=== PATIENT | male | born 1955 | race Caucasian/White ===

== ENCOUNTER → 2025-08-28 | Day surgery (SDC) | payer MEDICARE ==
[2025-08-23 12:34] LABS: BASOPHILS % 0.2 % (0.0-1.0); EOSINOPHILS % 0.3 % (0.0-6.0); LYMPHOCYTES % 24.3 % (18.0-39.1); MONOCYTES % 7.1 % (4.4-11.3); NEUTROPHILS % 67.7 % (38.7-80.0); RED CELL DISTRIBUTION WIDTH 13.8 % (11.7-14.4)
[~2025-08-28] MED LIST: ASPIRIN81 MG PO; BENICAR20 MG PO; CYCLOBENZAPRINE10 MG PO; FLUVASTATIN ER80 MG PO; GLIPIZIDE5 MG PO; HYDROCHLOROTHIA25 MG PO; LACTATED RINGER'S 1,000 ML ONE; LASIX20 MG PO; LIDOCAINE HCL 2% LOCAL INJ 5 ML SDV VIAL INJ ONE; MULTIVITAMIN1 EACH PO; NABUMETONE500 MG PO; OMEGA-31000 MG PO; POTASSIUM CHLO10 ME1 PO; PROPOFOL IV EMULSION 50 ML IV ONE; TRICOR145 MG PO; ULTRAM 50MG50 MG PO; VITAMIN B121000 MCG PO; ZOVIRAX200 MG/5 M PO
[2025-08-28 09:47] VITALS: TEMP 98.5
[2025-08-28 10:20] VITALS: BP 121/72; PULSE 66; RESP 16; O2SAT 98
== END | disposition home or self-care (01) ==
LOC: OR 06:54
PROVIDERS: ATTEND Internal Medicine Gastroenterology
DX: Z12.11 Encounter for screening for malignant neoplasm of colon (principal); K64.1 Second degree hemorrhoids; K57.90 Diverticulosis of intestine, part unspecified, without perforation or abscess without bleeding; K85.90 Acute pancreatitis without necrosis or infection, unspecified; G47.33 Obstructive sleep apnea (adult) (pediatric); I10 Essential (primary) hypertension; E66.01 Morbid (severe) obesity due to excess calories; E11.9 Type 2 diabetes mellitus without complications; I25.10 Atherosclerotic heart disease of native coronary artery without angina pectoris; E78.5 Hyperlipidemia, unspecified; M54.2 Cervicalgia; M54.9 Dorsalgia, unspecified; Z78.9 Other specified health status; X58.XXXA Exposure to other specified factors, initial encounter; Z88.0 Allergy status to penicillin; Z91.048 Other nonmedicinal substance allergy status; T78.49XA Other allergy, initial encounter; Z01.810 Encounter for preprocedural cardiovascular examination; Z01.812 Encounter for preprocedural laboratory examination; Z79.82 Long term (current) use of aspirin; Z79.84 Long term (current) use of oral hypoglycemic drugs; Z79.899 Other long term (current) drug therapy; Z68.42 Body mass index [BMI] 45.0-49.9, adult; Z71.3 Dietary counseling and surveillance
CPT/HCPCS: 36415 ×2; 82948; 85025; 93005; G0121; J2003; J2704; J7121; 45378